=== PATIENT | female | born 1945 | race Caucasian/White ===

== ENCOUNTER 2017-01-16 09:55 | Emergency (ER) | payer OTHER ==
[~2017-01-16] VITALS: Wt 80.0 kg
[~2017-01-16 09:55] MED LIST: AMLO5TAB4 PO; ATEN-51 PO; CALC-42 PO; GABA300C16 PO; OMEG1CAP9 PO; SIMV20TA PO; TRAM50TA2 PO
--- NOTE | 2017-01-16 12:20 | RADRPT ---
PROCEDURE: XR Hand. CLINICAL INDICATION: Second digit trauma and pain. TECHNIQUE: AP and lateral views of the right hand were obtained. COMPARISON: No prior studies are available for comparison. FINDINGS: Avulsion fracture with ulnar distraction of the proximal metaphysis of the proximal second phalanx. Moderate periarticular soft tissue swelling. IMPRESSION: 1. Avulsion fracture along the ulnar base of the proximal metaphysis of the proximal second phalanx . Mild periarticular soft tissue swelling. RPTAT:AAJJ Sb Bravo Physician Date Time Electronically viewed and signed by Physician Sola on 01/16/2017 12:20 MAURO/
[2017-01-16] MEDS ORDERED: IBUP400T22 PO (12:54)
--- NOTE | 2017-01-16 12:58 | ERD ---
ER Documentation Chief Complaint Date/Time DATE: 01/16/17 TIME: 12:56 Chief Complaint RIGHT INDEX FINGER PAIN AND SWELLING NON TRAUMATIC. ONSET 1 WK HPI 8-year-old female presents with pain in her right index finger after awkward movement or minor trauma 1 week ago. She denies restricted range of motion or weakness or fevers or bleeding. Denies any other injuries. ROS All systems reviewed and are negative except as per history of present illness. Medications Home Meds Active Scripts Ibuprofen* (Motrin*) 400 Mg Tab, 400 MG PO Q6, #15 TAB Prov:DAYDAY CATHERINE MD 01/16/17 Tramadol HCl (Tramadol HCl) 50 Mg Tab, 50 MG PO Q6 Y for PAIN, #20 TAB Prov:SUE POTTS MD 05/19/15 Reported Medications Calcium Carbonate-Vitamin D3 (Calcium 500 + Vit D 400 Tablet) 1 Each Tablet, 1 TAB PO BID, TAB 07/31/14 Atenolol* (Atenolol*) 25 Mg Tablet, 25 MG PO BID, TAB 07/31/14 Amlodipine Besylate* (Norvasc*) 5 Mg Tablet, 5 MG PO DAILY, TAB 07/31/14 Simvastatin* (Zocor*) 20 Mg Tablet, 20 MG PO HS, TAB 07/31/14 Docosahexanoic Acid/Epa (Fish Oil 1,000 Mg Softgel) 1 Cap Capsule, 1 CAP PO BID 07/31/14 Gabapentin* (Gabapentin*) 300 Mg Capsule, 300 MG PO HS, CAP 07/31/14 Allergies Allergies: Coded Allergies: No Known Allergy (Unverified , 01/16/17) PMhx/Soc History of Surgery: Yes (OVARIAN SURGERY) Anesthesia Reaction: No Hx Neurological Disorder: No Hx Respiratory Disorders: No Hx Cardiac Disorders: Yes (HTN,HIGH CHOLESTEROL) Hx Psychiatric Problems: No Hx Miscellaneous Medical Probl: No Hx Alcohol Use: No Hx Substance Use: No Hx Tobacco Use: No Smoking Status: Never smoker Physical Exam Vitals Vital Signs Date Time Temp Pulse Resp B/P Pulse Ox O2 Delivery O2 Flow Rate FiO2 01/16/17 10:00 97.8 72 21 144/54 98 Physical Exam Const: [] Alert, [id number]. Head: Atraumatic Eyes: Normal Conjunctiva ENT: Normal External Ears, Nose and Mouth. Neck: Full range of motion..~ No meningismus. Resp: Clear to auscultation bilaterally Cardio: Regular rate and rhythm, no murmurs Abd: Soft, non tender, non distended. Normal bowel sounds Skin: No petechiae or rashes Back: No midline or flank tenderness Ext: No cyanosis, or edema. Some tenderness and swelling on the right index finger PIP joint without deformities. Patient has no evidence of tendon or neurologic deficits. There is no erythema or warmth or bleeding Neur: Awake and alert Psych: Normal Mood and Affect Procedures/MDM X-ray Finger 2V Interpreted by me: Bones: There is AN avulsion fracture along the ulnar base of the proximal metaphysis of the right index finger. Joints: [No dislocation] Foreign body: [None]. Impression-avulsion fracture of the ulnar base of the proximal metaphysis of the right index. Patient was placed in a right index finger metal splint. Splint Assessment: Neurovascularly intact post splint placement with good fit. Patient has a closed right index finger fracture without evidence of tendon or neurologic deficit or vascular compromise. She will treated with a splint and instructions to follow-up with primary doctor and orthopedist for further evaluation which within the next week. She is advised to return for fevers, redness, new or worsening symptoms Departure Diagnosis: Primary Impression: Finger fracture, right Encounter type: initial encounter Fracture type: closed Qualified Code: S62.609A - Finger fracture, right, closed, initial encounter Condition: Stable Patient Instructions: Finger and Toe Fractures (Broken Finger or Toe) Referrals: GURWINDER KEE MD Additional Instructions: HAY POQUITO FRACTURA. Va al [place] doctor/ specialista para mas evaluacon en el proximo semana. posiblemente necesita autorizado de [place] doctor primario para specialista. Regresa para fiebre, o mas o nueva simptomas. DAYDAY CATHERINE MD Jan 16, 2017 12:58
== END 2017-01-16 13:07 | disposition home or self-care (01) ==
LOC: FTE 09:55
DX: S52.091A Other fracture of upper end of right ulna, initial encounter for closed fracture (principal); I10 Essential (primary) hypertension; X50.1XXA Overexertion from prolonged static or awkward postures, initial encounter; Y92.9 Unspecified place or not applicable
CPT/HCPCS: 29130; 73140; Z7502